=== PATIENT | male | born 1995 | race Two or more races ===

== ENCOUNTER 2022-01-13 17:02 | Emergency (ER) | payer SELFPAY ==
[~2022-01-13] VITALS: Ht 167.6 cm; Wt 84.2 kg
[2022-01-13 17:41] VITALS: BP 142/87
[2022-01-13] MEDS ORDERED: TETANUS-DIPTH-ACEL PERTUSSIS 0.5ML SYR Tdap IM ONE (18:00)
[2022-01-13] MEDS ORDERED: CEPH-509 PO (18:02)
== END 2022-01-13 18:22 | disposition home or self-care (01) ==
LOC: ER 17:02
DX: S61.411A Laceration without foreign body of right hand, initial encounter (principal); F17.210 Nicotine dependence, cigarettes, uncomplicated; Z79.899 Other long term (current) drug therapy; W25.XXXA Contact with sharp glass, initial encounter; Y93.89 Activity, other specified; Y92.89 Other specified places as the place of occurrence of the external cause; Y99.8 Other external cause status
CPT/HCPCS: 12002; 90471; 90715; 99283; J2001